=== PATIENT | male | born 1965 | race Caucasian/White ===

== ENCOUNTER 2025-02-04 12:18 | Outpatient (CLI) | payer OTHER, MEDICAID | END 2025-02-04 12:19 | disposition home or self-care (01) | LOC: CSHCT 12:18 | PROVIDERS: ATTEND Orthopaedic Surgery | DX: M54.2 Cervicalgia (principal); M47.22 Other spondylosis with radiculopathy, cervical region; M54.6 Pain in thoracic spine; M54.50 Low back pain, unspecified; M48.061 Spinal stenosis, lumbar region without neurogenic claudication; M48.07 Spinal stenosis, lumbosacral region | CPT/HCPCS: 72125; 72128; 72131 ==